=== PATIENT | female | born 1985 ===

== ENCOUNTER 2024-01-05 10:14 | Emergency (ER) | payer OTHER, SELFPAY ==
[2024-01-05 10:22] VITALS: BP 186/85; PULSE 96; RESP 16; TEMP 36.9; O2SAT 98; BMI 40.8
--- NOTE | 2024-01-05 11:05 | ED_ITS ---
HPI - Eye Problem General Chief complaint: Eye Problems Stated complaint: l eye issue Time Seen by Provider: 01/05/24 10:53 Source: patient Mode of arrival: ambulatory Limitations: no limitations History of Present Illness ED Provider: Tenisha Naranjo APRN HPI Narrative: 38yo female who uses corrective lenses here with complaints of one week of left eye irritation, drainage, photophobia. Patient reports Sunday she was raking leaves outdoors but does not recall any injury. Sunday she woke with symptoms. Bought OTC antihistamine and was using with no relief. Went to urgent care Sunday and recommended she use Pataday gtt but continued symptoms. No eye pain, crusting, vision changes. Has had some rhinorrhea but no sneezing/URI symptoms. Related Data Previous Rx's ?Medication ?Instructions ?Recorded erythromycin 5 mg/gram (0.5 %) eye 0.5 inch ophthalmic (eye) TID #3.5 01/05/24 ointment grams Allergies Allergy/AdvReac Type Severity Reaction Status Date / Time No Known Allergies Allergy Verified 01/05/24 10:24 [No Known Allergies*] Review of Systems Review of Systems: Yes all other systems are reviewed and are negative Constitutional: Constitutional: Reports no additional constitutional complaints, Denies body ache(s), Denies chills, Denies fever(s), Denies headache(s) and Denies weakness Eyes: Eyes: Reports no additional eye complaints, Denies blurry vision, Denies change in vision, Denies diplopia, Reports eye discharge, Denies dry eyes, Reports irritation, Denies itchy eyes, Denies eye pain, Reports requires corrective lenses and Reports photophobia ENT: Reports system reviewed and no additional complaints, except as documented, Denies dizziness, Denies headache(s), Denies nasal congestion, Denies nasal discharge and Denies neck pain Cardiovascular: Cardiovascular: Reports no additional cardiovascular complaints, Denies chest pain, Denies leg edema and Denies dyspnea Respiratory: Respiratory: Reports no additional respiratory complaints, Denies cough and Denies dyspnea Gastrointestinal: Gastrointestinal: Reports no additional gastrointestinal complaints, Denies abdominal pain, Denies diarrhea, Denies nausea and Denies vomiting Genitourinary: Genitourinary: Reports no additional female genitourinary complaints and Denies urinary incontinence Musculoskeletal: Musculoskeletal: Reports no additional musculoskeletal complaints, Denies back pain, Denies arthralgias, Denies joint swelling, Denies neck pain, Denies numbness and Denies tingling Integumentary/Breasts: Skin/Breast: Reports system reviewed and no additional complaints, except as docu and Denies rash Neurologic: Reports system reviewed and no additional complaints, except as documented, Denies Abnormal speech present, Denies dizziness, Denies headache(s), Denies numbness, Denies tingling and Denies weakness Allergic/Immunologic: Allergic/Immunologic: Denies itchy eyes PMFSH Past Medical History Attestation statement: The following information was validated with the patient. Source: old records reviewed and nursing notes reviewed Social History Social History Smoked in Last 30 Days: No Use of substances other than those prescribed or required for medical reasons: Yes Substance Use Type: Marijuana and Caffiene Substance Use Frequency: Weekly Last Used Substance: Days (ago) Any prior treatment program specific to substance use: No Advance Directives: No Advance Directives Information Provided: No Physical Exam Vital Signs: Vital Signs: Last Vital Signs Temp 98.9 F 01/05/24 11:50 Pulse 80 01/05/24 11:50 Resp 16 01/05/24 11:50 BP 00/00 L 01/05/24 11:50 Pulse Ox 95 01/05/24 11:50 O2 Del Method Room Air 01/05/24 11:50 BMI result Body Mass Index 40.8 Const: General: cooperative, healthy appearing, comfortable and no acute distress Orientation/consciousness: patient oriented x3 Limitations: no limitations HEENT: Head: Yes normal to inspection Ears: hearing grossly normal bilaterally General nose exam: Normal external nose present Face and sinus: Yes normal facial exam Mouth: Normal oral and palatal mucosa present Throat: Yes posterior oropharynx normal Eyes: Other: IOP bilaterally 18 EOM normal General: appearance normal, both eyes and all related structures Visual Falcon: normal visual falcon by confrontation Alignment and Position: alignment normal Periorbital: periorbital findings normal Eyelids: Yes eyelids normal Conjunctivae: conjunctival abnormal (Left injection) Sclerae: scleral abnormal (mild left scleral swelling ) Corneas: fluorescein used (Increased uptake ) Pupils: Equal, round and reactive pupils present Direct Ophthalmoscopy: photophobia Neck: Neck: Yes normal visual inspection Chest: Chest palpation & inspection: normal inspection of the chest Resp: Effort & Inspection: normal respiratory effort Auscultation: clear to auscultation bilaterally Cardio: Rate: regular rate Rhythm: regular rhythm Peripheral pulses: Peripheral pulses 2+ throughout GI: Inspection: Yes normal to inspection Palpation (GI): Soft to palpation and nontender Auscultation: normal bowel sounds Back/Spine/Pelvis: Thoracic/Lumbar Spine: thoracic and lumbar spine normal to inspection Skin: General skin exam: no rashes or lesions noted Neuro: General: patient oriented x3, no focal motor deficits and normal sensation to monofilament Cranial nerves: Yes Equal, round and reactive pupils present Cognition (Neuro): normal cognition Speech: No Abnormal speech present Gait exam (Neuro): Normal gait present Motor exam (neuro): 5/5 motor strength present throughout Extrem: General: Yes normal to inspection Course Course Course Narrative: Asymptomatic HTN-will follow up with PCP On eye exam. No obvious corneal abrasion/FB. +uptake of fluroscein with conjunctival injection and mild scleral edema which may be seen with conjunctivitis. No signs or symptoms of orbital cellulitis. Normal IOP. Patient did have corrective lenses and had a slight discrepancy in her visual acuity but is not reporting any visual changes from baseline. I do not know her baseline visual acuity. Will treat with erythromycin ointment and recommend patient follow-up with her outpatient providers. I did review worrisome signs and symptoms with her when to return to the emergency room. Comfortable plan for discharge home. Medications Administered Discontinued Medications Generic Name Dose Route Start Last Admin Trade Name Fabq PRN Reason Stop Dose Admin Fluorescein Sodium 1 strip 01/05/24 10:50 01/05/24 11:08 Fluorescein Sodium Strip EYE-LEFT 01/05/24 10:51 1 strip ONCE ONE Administration Tetracaine HCl 1 drop 01/05/24 10:50 01/05/24 11:08 Tetracaine Hcl/Pf 0.5% Oph Rita 4 Ml Drops EYE-LEFT 01/05/24 10:51 1 drop ONCE ONE Administration Medical Decision Making Medical Decision Making [facility] Narrative: 38yo female who uses corrective lenses here with complaints of one week of left eye irritation, drainage, photophobia despite using topical antihistamine. No reports of visual disturbance, eye pain, difficulty with eye movement. Will need eye exam, visual acuity Differential Diagnosis Differential Diagnoses: The differential diagnosis associated with the presentation includes Corneal FB/abrasion, conjunctivitis Low suspicion for orbital cellulitis Admission/Observation Consideration of admission/observation: Escalation of care including admission/observation considered Low suspicion for orbital cellulitis requiring advanced imaging and consultation Tests considered The following testing was considered but not selected: See above Prescription Management I considered prescription management with: Antibiotic Discharge Plan Discharge Clinical Impression: Bacterial conjunctivitis, Hypertension Patient Disposition: Home, Self-Care Instructions: Hypertension (ED), Conjunctivitis (ED) Additional Instructions: Use the medication as directed Buy new eye makeup Wash hands with soap and water after touching eye or using the medication Treat both eyes if the right eye becomes affected Return for eye pain, fever, vision change or difficulty moving the eye Your blood pressure was high on todays visit. Please follow-up with your PCP for a re-check. Return for severe HUIZAR, vomiting Prescriptions: New erythromycin 5 mg/gram (0.5 %) ointment 0.5 inch ophthalmic (eye) TID Qty: 3.5 0RF Referrals: Physician,None [Primary Care Provider] - 1 week Stand Alone Forms: Work/School Release Interventions: ED Discharge Assessment Last Done: 01/05/24 11:50 Discharge Date/Time: 01/05/24 11:50 Print Language: Romanian
[2024-01-05] MEDS: Fluorescein Sodium STRIP 1 STRIP EYE-LEFT (11:08)
[2024-01-05] MEDS: Tetracaine HCl/PF 0.5% Oph Sol 4 ML DROPS 1 DROP EYE-LEFT (11:08)
[2024-01-05 11:26] VITALS: PULSE 92; RESP 18; TEMP 36.5; O2SAT 100
[2024-01-05 11:40] VITALS: BP 164/102
[2024-01-05 11:48] VITALS: PULSE 80; RESP 16; TEMP 37.2; O2SAT 95
[2024-01-05 11:50] VITALS: BP 00/00; PULSE 80; RESP 16; TEMP 37.2; O2SAT 95
== END 2024-01-05 11:50 | disposition home or self-care (01) ==
PROVIDERS: Emergency Provider Emergency Medicine Emergency Medical Services
DX: H10.9 Unspecified conjunctivitis (principal); I10 Essential (primary) hypertension
CPT/HCPCS: 99283; 99284